=== PATIENT | male | born 1965 | race Caucasian/White ===

== ENCOUNTER → 2020-04-07 09:54 | Outpatient (BNVA) | payer OTHER, SELFPAY | PROVIDERS: Visit Provider Urology | DX: N40.1 Benign prostatic hyperplasia with lower urinary tract symptoms (principal); N13.8 Other obstructive and reflux uropathy; R33.8 Other retention of urine | CPT/HCPCS: 51798; 99214 ==

== ENCOUNTER 2020-04-15 14:34 | Outpatient (REF) | payer OTHER, SELFPAY ==
--- NOTE | 2020-04-15 14:40 | US_ITS ---
EXAMINATION: US PELVIS LIMITED (BLADDER) CLINICAL INFORMATION: Retention of urine, unspecified. COMPARISON: CT abdomen and pelvis 03/19/2020 TECHNIQUE: Real-time imaging of the bladder. FINDINGS: BLADDER: Well distended and normal. Bilateral ureteral jets are demonstrated. Prevoid bladder volume is 274 mL. Postvoid bladder volume is 32 mL. ADDITIONAL FINDINGS: The prostate volume of 37 mL. Calcifications of the prostate. IMPRESSION: Mild postvoid bladder residual volume of 32 mL. Prostate at the upper limit of normal.
== END 2020-04-15 14:35 | disposition home or self-care (01) ==
LOC: HO.HMGCX 14:34
PROVIDERS: Visit Provider Urology
DX: R33.9 Retention of urine, unspecified (principal)
CPT/HCPCS: 76857

== ENCOUNTER → 2020-07-07 13:58 | Outpatient (BNVA) | payer OTHER, SELFPAY | PROVIDERS: Visit Provider Urology | DX: N40.1 Benign prostatic hyperplasia with lower urinary tract symptoms (principal); R33.9 Retention of urine, unspecified | CPT/HCPCS: 99212 ==